=== PATIENT | male | born 1960 | race Caucasian/White ===

== ENCOUNTER 2017-09-29 18:25 | Emergency (ER) | payer SELFPAY ==
[~2017-09-29] VITALS: Ht 180.3 cm; Wt 65.8 kg
[2017-09-29] MEDS ORDERED: MOTRIN800 MG PO (20:52)
[2017-09-29] MEDS ORDERED: AUGMENTIN875 MG PO (20:52)
[2017-09-29 21:53] VITALS: BP 122/75
== END 2017-09-29 21:53 | disposition home or self-care (01) ==
LOC: EME 18:25
PROC: 0JQG0ZZ Repair Right Lower Arm Subcutaneous Tissue and Fascia, Open Approach (ICD-10-PCS; principal; 2017-09-29)
PROC: 0JQH0ZZ Repair Left Lower Arm Subcutaneous Tissue and Fascia, Open Approach (ICD-10-PCS; principal; 2017-09-29)
DX: S51.832A Puncture wound without foreign body of left forearm, initial encounter (principal); S51.831A Puncture wound without foreign body of right forearm, initial encounter; W54.0XXA Bitten by dog, initial encounter; K21.9 Gastro-esophageal reflux disease without esophagitis; F17.200 Nicotine dependence, unspecified, uncomplicated
CPT/HCPCS: 73060; 73090; 99281; 99285